=== PATIENT | male | born 1995 | race African-American/Black ===

== ENCOUNTER 2016-08-06 15:11 | Emergency (ER) | payer OTHER ==
[~2016-08-06] VITALS: Ht 180.3 cm; Wt 83.9 kg
[~2016-08-06 15:11] MED LIST: IBUPROFEN600 MG ORAL; NKM; RANITIDINE HCL150 MG ORAL
[2016-08-06] MEDS ORDERED: Hydrogen Peroxide 120ml Bottle TOPIC ONE (15:51)
--- NOTE | 2016-08-06 16:23 | Emergency Room Report ---
History of Present Illness General Chief Complaint: Laceration Source: Patient Present Illness HPI 20 y/o male c/o left hand laceration x 2 hours ago. States that he was carrying a glass table top which shattered on left hand. States he could not control the bleeding so he came in for treatment. States he has full range of motion for his hand and does not want sutures if possible. Allergies: Coded Allergies: AMOXICILLIN (Verified Allergy, Severe, rash, 06/21/13) Patient History Immunizations: UTD, other - Tdap UTD Reviewed Nursing Documentation: PMH: Agreed, PSxH: Agreed Nursing Documentation-PMH Past Medical History: No Stated History Review of Systems All Other Systems: negative except mentioned in HPI Physical Exam Vital Signs Date Time Temp Pulse Resp B/P Pulse Ox O2 Delivery O2 Flow Rate FiO2 08/06/16 15:15 97.9 86 15 139/80 98 Room Air Sp02 EP Interpretation: reviewed, normal General Appearance: no apparent distress, alert, GCS 15, non-toxic Head: normocephalic, atraumatic Eyes: bilateral eye PERRL, bilateral eye normal inspection ENT: hearing grossly normal, no angioedema, normal voice Neck: full range of motion, supple/symm/no masses Respiratory: chest non-tender, lungs clear, normal breath sounds, speaking full sentences Cardiovascular #1: regular rate, rhythm, no edema Cardiovascular #2: 2+ radial (R), 2+ radial (L) Musculoskeletal: gait/station normal, normal range of motion, non-tender Neurologic: alert, oriented x3, responsive, motor strength/tone normal, sensory intact, speech normal Psychiatric: judgement/insight normal, memory normal, mood/affect normal, no suicidal/homicidal ideation Skin: normal color, no rash, warm/dry, well hydrated, other - skin avulsion along base of second digit, abrasions - scattered across dorsal aspect of left hand Lymphatic: no adenopathy Medical Decision Making PA Attestation Dr. Narvaez is my supervising physician with whom patient management has been discussed with. Diagnostic Impression: Primary Impression: Abrasion of left hand, initial encounter Additional Impression: Avulsion of skin of left hand Qualified Codes: S61.402A - Unspecified open wound of left hand, initial encounter ER Course Pt. presents to the ED c/o left hand laceration Ddx considered but are not limited to laceration, fracture, foreign body Vital signs: are WNL, pt. is afebrile H&PE are most consistent with abrasion and skin avulsion of left hand ORDERS: XR left hand r/o foreign body ED INTERVENTIONS: Wound irrigation with 1L of NS, Xeroform dressing with telfa and coban. DISCHARGE: At this time pt. is stable for d/c to home. Will provide printed patient care instructions, and any necessary prescriptions. Care plan and follow up instructions have been discussed with the patient prior to discharge. Other X-Ray Diagnostic Results Other X-Ray Diagnostic Results : Date: Aug 06, 2016 EP Interpretation: Yes Findings: no fractures, no dislocation, no soft tissue swelling, other - no obvious foreign body Number of Views: 3 Last Vital Signs Date Time Temp Pulse Resp B/P Pulse Ox O2 Delivery O2 Flow Rate FiO2 08/06/16 15:15 97.9 86 15 139/80 98 Room Air Status: improved Disposition: HOME, SELF-CARE Condition: Improved Scripts Trimethoprim/Sulfamethoxazole 160/800* (BACTRIM DS TABLET*) 1 Each Tablet 1 TAB ORAL TWICE A DAY for 7 Days, #14 TAB Prov: OBDULIA [place] 08/06/16 Referrals: Natalia YOUNG,REFERRING (PCP) Patient Instructions: Nonsutured Laceration Care OBDULIA NJ Aug 06, 2016 16:23
[2016-08-06 16:30] VITALS: BP 128/77
[2016-08-06] MEDS ORDERED: BACTRIM DS TAB1 EAC1 ORAL (16:33)
[2016-08-06 16:40] VITALS: BP 128/77
--- NOTE | 2016-08-07 11:16 | Diagnostic Imaging Report ---
Indication: pain Findings: 3 views of the left hand were obtained. Normal bony mineralization and alignment are demonstrated. No acute fractures, erosions, or periosteal reaction are seen. Soft tissues are unremarkable. Impression: Negative examination of the left hand.
== END 2016-08-06 16:40 | disposition home or self-care (01) ==
LOC: EMR 15:35
DX: S61.412A Laceration without foreign body of left hand, initial encounter (principal); S60.512A Abrasion of left hand, initial encounter; Z88.1 Allergy status to other antibiotic agents; W25.XXXA Contact with sharp glass, initial encounter; Y92.9 Unspecified place or not applicable; Y99.8 Other external cause status
CPT/HCPCS: 99284

== ENCOUNTER → 2017-01-31 | Emergency (ER) | payer SELFPAY ==
[~2017-01-31] VITALS: Ht 180.3 cm; Wt 86.2 kg
[~2017-01-31] MED LIST changes: +BACTRIM DS TAB1 EAC1 ORAL
[2017-01-31 16:02] VITALS: BP 125/72
--- NOTE | 2017-01-31 16:20 | Emergency Room Report ---
History of Present Illness General Chief Complaint: Upper Extremity Injury Source: Patient Present Illness HPI The patient is a 21-year-old male presenting for left ring finger pain. He states that a basketball hit the finger 2 days prior and he noticed immediate pain and swelling. There has been no decrease of pain over the last 2 days. It is now described as an 8/10 dull ache and does not radiate. Worse with movement. He denies numbness or tingling. He states he is unable to fully bend the finger. He denies previous injury to the finger He denies any other symptoms Allergies: Coded Allergies: AMOXICILLIN (Verified Allergy, Severe, rash, 06/21/13) Patient History Past Medical History: see triage record Pertinent Family History: none Reviewed Nursing Documentation: PMH: Agreed, PSxH: Agreed Nursing Documentation-PMH Past Medical History: No Stated History Review of Systems All Other Systems: negative except mentioned in HPI Physical Exam Vital Signs Date Time Temp Pulse Resp B/P Pulse Ox O2 Delivery O2 Flow Rate FiO2 01/31/17 16:02 97.9 79 18 125/72 100 Room Air Sp02 EP Interpretation: reviewed, normal General Appearance: no apparent distress, alert, GCS 15, non-toxic Head: normocephalic, atraumatic Eyes: bilateral eye PERRL, bilateral eye normal inspection ENT: hearing grossly normal, normal pharynx, no angioedema, normal voice Musculoskeletal: decreased range of motion, swelling - L 4th finger, tender - TTP over the L 4th PIPJ Neurologic: alert, oriented x3, responsive, motor strength/tone normal, sensory intact, speech normal Psychiatric: judgement/insight normal, memory normal, mood/affect normal, no suicidal/homicidal ideation Skin: normal color, no rash, warm/dry, well hydrated Procedures Splinting Splinting : Consent: Verbal Location: L 4th finger Pre-Made Type: metal Splint: finger splint Pre-Proc Neuro Vasc Exam: normal Post-Proc Neuro Vasc Exam: normal Patient Tolerated: Well Complications: None Medical Decision Making PA Attestation Dr. Kauffman is my supervising physician. Patient management was discussed with my supervising physician Diagnostic Impression: Primary Impression: Sprain of finger, left Qualified Codes: S63.615A - Unspecified sprain of left ring finger, initial encounter ER Course The patient is a 21-year-old male presenting for pain to the left ring finger Differential diagnoses considered but not limited to: Fracture, contusion, sprain, dislocation Physical exam: Vitals within normal limits. no apparent distress There is tenderness to palpation, swelling, and ecchymosis over the L 4th digit PIP joint. Full active range of motion. X-ray of the hand is unremarkable A finger splint is placed and the patient is given RICE instructions. The patient will followup with PMD. ER precautions given Other X-Ray Diagnostic Results Other X-Ray Diagnostic Results : X-Ray ordered: L hand # of Views/Limited Vs Complete: 3 View Indication: Pain EP Interpretation: Yes Interpretation: no dislocation, no soft tissue swelling, no fractures Impression: No acute disease PA Scribe Text I am acting as scribe for my supervising physician. My supervising physician's interpretation of the L hand xrays are there are no fractures, dislocations or soft tissue swelling. Last Vital Signs Date Time Temp Pulse Resp B/P Pulse Ox O2 Delivery O2 Flow Rate FiO2 01/31/17 16:02 97.9 79 18 125/72 100 Room Air Status: improved Disposition: HOME, SELF-CARE Condition: Improved Scripts Ibuprofen* (MOTRIN*) 600 Mg Tablet 600 MG ORAL Q8H Y for For Pain, #30 TAB 0 Refills Prov: DAVID ROSA 01/31/17 DAVID ROSA Jan 31, 2017 16:20
--- NOTE | 2017-01-31 17:02 | Diagnostic Imaging Report ---
Indication: PAIN Technique: 3 views left hand Comparison: none Findings: No acute fractures. No dislocations. Joint spaces are preserved. Slight deformity at the base of the third distal phalanx on the radial side could indicate prior injury. Impression: No acute process
[2017-01-31 17:05] VITALS: BP 113/70
== END | disposition home or self-care (01) ==
LOC: EMR 16:30
DX: S63.615A Unspecified sprain of left ring finger, initial encounter (principal); W51.XXXA Accidental striking against or bumped into by another person, initial encounter; Y93.67 Activity, basketball; Y92.89 Other specified places as the place of occurrence of the external cause; Z88.0 Allergy status to penicillin
CPT/HCPCS: 29130; 99283

== ENCOUNTER 2018-04-28 17:17 | Emergency (ER) | payer MEDICAID ==
[~2018-04-28] VITALS: Ht 182.9 cm; Wt 86.2 kg
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
[2018-04-28] MEDS ORDERED: IBUPROFEN600 MG ORAL (17:48)
[2018-04-28] MEDS ORDERED: ROBAXIN-750750 MG PO (17:48)
[2018-04-28 18:00] VITALS: BP 106/68
== END 2018-04-28 18:10 | disposition home or self-care (01) ==
LOC: EMR 18:00
DX: T14.8XXA Other injury of unspecified body region, initial encounter (principal); M54.5 Low back pain; V23.4XXA Motorcycle driver injured in collision with car, pick-up truck or van in traffic accident, initial encounter; Y93.9 Activity, unspecified; Y92.9 Unspecified place or not applicable; Y99.9 Unspecified external cause status; Z88.0 Allergy status to penicillin
CPT/HCPCS: 99283

== ENCOUNTER 2018-06-21 08:27 | Emergency (ER) | payer MEDICAID ==
[~2018-06-21] VITALS: Ht 182.9 cm; Wt 86.2 kg
[~2018-06-21 08:27] MED LIST changes: +ROBAXIN-750750 MG PO
[2018-06-21] MEDS ORDERED: IBUPROFEN600 MG ORAL (09:10)
[2018-06-21] MEDS ORDERED: ROBAXIN-750750 MG PO (09:10)
[2018-06-21] MEDS ORDERED: Methocarbamol 750mg tab ORAL ONE (09:15)
[2018-06-21 09:18] VITALS: BP 126/82
--- NOTE | 2018-06-21 09:38 | Emergency Room Report ---
History of Present Illness General Chief Complaint: Neck Pain Source: Patient Present Illness HPI Patient presents with complaints of right-sided neck pain to the trapezius area Reports that yesterday while he was playing basketball he landed and was pulled on his right arm And after that point the pain started Denies any tingling or neuropathy in the hand he did have increased pain to the lateral side of the right neck in the trapezius area Denies any other trauma Denies any chest pain or shortness of breath Allergies: Coded Allergies: AMOXICILLIN (Verified Allergy, Severe, rash, 06/21/13) Patient History Past Medical History: see triage record Pertinent Family History: none Reviewed Nursing Documentation: PMH: Agreed; PSxH: Agreed Nursing Documentation-PMH Past Medical History: No History, Except For Review of Systems All Other Systems: negative except mentioned in HPI Physical Exam Vital Signs Date Time Temp Pulse Resp B/P (MAP) Pulse Ox O2 Delivery O2 Flow Rate FiO2 06/21/18 08:37 98.1 64 17 121/79 99 Room Air Sp02 EP Interpretation: reviewed, normal General Appearance: no apparent distress Head: normocephalic, atraumatic Eyes: bilateral eye PERRL, bilateral eye EOMI ENT: hearing grossly normal, normal pharynx Neck: other - Tender on palpation of the right paracervical C3-C4 region, also tenderness and stiffness in the right trapezius area Respiratory: lungs clear, normal breath sounds Gastrointestinal: non tender, soft Musculoskeletal: other - Discomfort as noted above otherwise equal community development planner bilaterally able to flex of the shoulder sensory intact, Neurologic: alert, oriented x3, responsive Skin: normal color, no rash Lymphatic: no adenopathy Medical Decision Making Diagnostic Impression: Primary Impression: Neck pain Additional Impression: Acute neck sprain ER Course Patient's clinical history exam and presentation is consistent with a neck sprain/strain with likely muscle skeletal involvement consideration for neurological, neurosurgical orthopedic emergencies is also made however given the mechanism of injury and the presentation Likely secondary to muscle skeletal pathology Patient will have initial conservative attempt and trial Will follow closely with primary physician next 2-3 days and return with any worsening symptoms or ongoing discomfort , Last Vital Signs Date Time Temp Pulse Resp B/P (MAP) Pulse Ox O2 Delivery O2 Flow Rate FiO2 06/21/18 09:18 98.1 82 17 126/82 100 Room Air Status: improved Disposition: HOME, SELF-CARE Condition: Improved Scripts Methocarbamol* (ROBAXIN-750*) 750 Mg Tablet 750 MG PO TID, #21 TAB 0 Refills Prov: Desirae Calvillo DO 06/21/18 Ibuprofen* (MOTRIN*) 600 Mg Tablet 600 MG ORAL Q8H PRN for For Pain, #20 TAB 0 Refills Prov: Desirae Calvillo DO 06/21/18 Referrals: NOT CHOSEN [facility]/MD,REFERRING (PCP) Patient Instructions: Cervical Sprain, [id number] Additional Instructions: Patient is provided with the discharge instructions notified to follow up with primary doctor in the next 2-3 days otherwise return to the er with any worsening symptoms. Please note that this report is being documented using [employer] technology. This can lead to erroneous entry secondary to incorrect interpretation by the dictating instrument. Desirae Calvillo DO Jun 21, 2018 09:38
== END 2018-06-21 09:18 | disposition home or self-care (01) ==
LOC: EMR 09:03
DX: S13.9XXA Sprain of joints and ligaments of unspecified parts of neck, initial encounter (principal); W19.XXXA Unspecified fall, initial encounter; Y93.67 Activity, basketball; Y92.89 Other specified places as the place of occurrence of the external cause; Z88.0 Allergy status to penicillin
CPT/HCPCS: 99283